=== PATIENT | female | born 1945 | race African-American/Black ===

== ENCOUNTER 2016-12-26 14:26 | Emergency (ER) | payer OTHER ==
[~2016-12-26] VITALS: Ht 167.6 cm; Wt 73.0 kg
[2016-12-26 14:38] VITALS: BP 169/90
== END 2016-12-26 17:52 | disposition left against medical advice (07) ==
LOC: ER 15:01
DX: M25.511 Pain in right shoulder (principal); Z53.21 Procedure and treatment not carried out due to patient leaving prior to being seen by health care provider